=== PATIENT | female | born 1955 | race Caucasian/White ===

== ENCOUNTER → 2016-11-10 15:44 | Outpatient (CLI) | payer OTHER ==
[2016-01-30 02:35] VITALS: BMI 33.1
[~2016-11-10 15:44] MED LIST: ALDACTONE25 MG PO; AMBIEN10 MG PO; ATIVAN0.5 MG PO; BAYER CHEWABLE81 MG PO; BENADRYL25 MG PO; COD LIVER OIL; COREG12.5 MG PO; COREG25 MG PO; FISH OIL 1,0001 CA1 PO; HAWTHORN BERRIES PO; HEMATINIC W/FOL1 TAB PO; IPRAT-ALBUT 0.5-3 ML NEB; ISORDIL5 MG PO; KLOR-CON M2020 MEQ; LASIX20 MG PO; LEVAQUIN500 MG PO; LEVAQUIN750 MG PO; LISINOPRIL2.5 MG GT; MEDROL DOSE PACK4 MG PO; MILK THISTLE PO; MILK THISTLE140 MG PO; MULTIPLE VITAMI1 TA1 PO; NITROSTAT0.4 MG SL; NORCO 10/325 TA1 TA1 PO; PLAVIX75 MG PO; PROTONIX40 MG PO; PROVENTIL/2.5 MG/3 M NEB; STERAPRED DS 1210 MG NG; ULTRAM50 MG PO; [UNRECOGNIZED DRUG - OTHER] PO
== END | disposition home or self-care (01) ==
LOC: D.RAD 15:44
DX: R06.00 Dyspnea, unspecified (principal)

== ENCOUNTER 2016-12-16 14:13 | Emergency (ER) | payer MEDICARE ==
[2016-01-30 02:35] VITALS: BMI 33.1
[2016-12-16 14:51] LABS: BASOPHILS 0.2 % (0-2); EOSINOPHILS 3.5 % (0-7); HEMATOCRIT 45.7 % (36.0-48.0); HEMOGLOBIN 14.9 g/dL (12-16); IMMATURE GRANULOCYTES 0.6 % (0-5); LYMPHOCYTES 12.9 % (15-50); MCH 29.3 pg (26.0-34.0); MCHC 32.6 g/dL (31.0-37.0); MEAN PLATELET VOLUME 10.6 fL (7.4-10.4); MONOCYTES 10.7 % (2-11); NEUTROPHILS 72.1 % (40-80); PLATELET COUNT 154 10x3/uL (130-400); RBC 5.08 10x6/uL (4.00-5.40); WBC 9.8 10x3/uL (4.8-10.8)
[2016-12-16 15:18] LABS: ALBUMIN 3.3 g/dL (3.4-5.0); ALKALINE PHOSPHATASE 52 U/L (46-116); ALT (SGPT) 19 U/L (10-68); CALC OSMOLALITY 289 mosm/kg (275-300); CARBON DIOXIDE 29.6 mmol/L (21.0-32.0); CHLORIDE - SERUM 105 mmol/L (98-107); CREATININE - SERUM 0.7 mg/dL (0.6-1.3); GLUCOSE 110 mg/dL (74-106); POTASSIUM - SERUM 3.8 mmol/L (3.5-5.1); PROTEIN - SERUM 7.2 g/dL (6.4-8.2); SODIUM 144 mmol/L (136-145); TROPONIN-I < 0.017 ng/mL (0.000-0.060); UREA NITROGEN 18 mg/dL (7-18); eGFR NON AFRICAN AMERICAN 90 mL/min (90-120)
[2016-12-16 15:22] LABS: APPEARANCE CLEAR (CLEAR); COLOR YELLOW (YELLOW); GLUCOSE NEGATIVE (NEGATIVE); NITRITE NEGATIVE (NEGATIVE); PROTEIN TRACE mg/dL (NEGATIVE)
[2016-12-16 15:23] LABS: BILIRUBIN NEGATIVE (NEGATIVE); KETONE NEGATIVE (NEGATIVE)
== END 2016-12-16 16:50 | disposition home or self-care (01) ==
LOC: D.ER 14:13
PROVIDERS: Emergency Medicine; Nurse Practitioner Family
DX: J44.1 Chronic obstructive pulmonary disease with (acute) exacerbation (principal); J06.9 Acute upper respiratory infection, unspecified; F41.9 Anxiety disorder, unspecified; F17.200 Nicotine dependence, unspecified, uncomplicated; I49.3 Ventricular premature depolarization

== ENCOUNTER 2019-05-15 09:11 | Outpatient (CLI) | payer MEDICARE ==
[~2019-05-15] VITALS: Ht 167.6 cm; Wt 104.5 kg
--- NOTE | ~2019-05-15 | OP ---
PATIENT NAME: LISETTE SANTIAGO MEDICAL RECORD: [id number] :55 LOCATION:D.CAT ADMISSION DATE: SURGEON: VINICIO MCDANIELS MD DATE OF OPERATION: 05/15/2019 DATE OF SERVICE: 05/15/2019 PROCEDURES: 1. Left heart catheterization. 2. Selective coronary angiography. 3. Left ventriculogram. INDICATION: Angina, coronary artery disease, and cardiomyopathy. PROCEDURE IN DETAIL: After informed consent was obtained and after detailed description of risks, benefits as well as alternative therapies, the patient elected to proceed with angiogram and heart catheterization. The right femoral area was prepped and draped in normal sterile fashion. Right femoral artery was cannulated via modified Seldinger technique with placement of 5-Danish sheath. FINDINGS: Left ventriculogram was performed in standard 30-degree VILLA view, reveals global hypokinesis, ejection fraction 15% to 20%. SELECTIVE CORONARY ANGIOGRAPHY: 1. Left main is with no significant angiographic disease. 2. Left anterior descending has mild irregularities, but no flow-limiting stenosis. 3. The left circumflex has mild irregularities, but no flow-limiting stenosis. 4. Right coronary has mild irregularities, but no flow-limiting stenosis. OVERALL IMPRESSION: Cardiomyopathy, minimal coronary artery disease is present. No flow-limiting stenosis. Center medical management for treatment of the cardiomyopathy. TRANSINT:[id number] Voice Confirmation ID: [id number] DOCUMENT ID: [id number] VINICIO MCDANIELS MD CC: [id number] DICTATION DATE: 06/17/19 1247 DIRECTOR CHEMISTRY: 06/17/19 1719 DEP CLI 05/15/[address] [address]
--- NOTE | ~2019-05-15 | OP ---
PATIENT NAME: LISETTE SANTIAGO MEDICAL RECORD: [id number] :55 LOCATION:D.CAT ADMISSION DATE: SURGEON: VINICIO MCDANIELS MD DATE OF OPERATION: 05/15/2019 ADDENDUM FINAL DIAGNOSIS: Unstable angina. TRANSINT:[id number] Voice Confirmation ID: [id number] DOCUMENT ID: [id number] VINICIO MCDANIELS MD CC: [id number] DICTATION DATE: 06/17/19 1243 GROUND OPERATIONS SUPERVISOR: 06/17/19 1713 DEP CLI 05/15/19 [place] [id number]
--- NOTE | ~2019-05-15 | HEMODYNAMI ---
PATIENT:LISETTE SANTIAGO MEDICAL RECORD: [id number] : 55 LOCATION:DGibsonCAT ADMISSION DATE: 05/15/19 Generatedon:05/15/201912:49 Patient name: LISETTE SANTIAGO Patient #: [id number] : 1955 Date of study: 05/15/2019 Page: Of Hemodynamic Procedure Report Patient Data Patient Demographics Procedure consent was obtained First Name: LISETTE Gender: Female Last Name: PAMELA : 1955 Middle Initial: L Age: 63 year(s) Patient #: [id number] Race: SSN: [id number] Additional ID: [id number] Contact details [address]: [address] [place] [address] State: [place] City: [place] Zip code: [address] Past Medical History History of disease Date Diagnosis Comments CAD Allergies Allergen Reaction Date Comments Reported Other allergy 06/22/2014 Statins, Latex, Metoprolol Other allergy 01/30/2016 Statins, Metoprolol, Latex Other allergy 05/15/2019 STATINS, METOPROLOL Admission Admission Data Admission Date: 05/15/2019 Admission Time: 9:11 Admit Source: Other Lab Results Lab Result Date: 05/15/2019 Lab Result Time: 0:00 Biochemistry Name Units Result Min Max BUN mg/dl 20 --(----)*- 7 18 Creatinine mg/dl 0.9 --(-*--)-- 0.6 1.3 eGFR ml/min 67.34888 *-(----)-- 90 120 NONAFRICAN CBC Name Units Result Min Max Hematocrit % 47.4 --(-*--)-- 42 54 Hemoglobin g/dl 15.7 --(--*-)-- 13.5 17.5 Procedure Procedure Types Cath Procedure Diagnostic Procedure LHC LHC w/Coronaries Sedation Charges Moderate Sedation up to 15 minutes Procedure Description Procedure Date Procedure Date: 05/15/2019 Procedure Start Time: 12:32 Procedure End Time: 12:43 Procedure Staff Name Function Tim Mahajan MD Performing Physician Amie Jordan RT Monitor Liv Dubon RT Scrub Alirio Diamond RN Nurse Procedure Data Cath Procedure Fluoroscopy Diagnostic fluoroscopy Total fluoroscopy Time: 1.4 time: 1.4 min min Diagnostic fluoroscopy Total fluoroscopy dose: 588 dose: 588 mGy mGy Contrast Material Contrast Material Type Amount (ml) Isovue 300 55 Entry Location Entry Primary Successful Side Size Upsize Upsize Entry Closure Succes sful Closure Location (Fr) 1 (Fr) 2 (Fr) Remarks Device Remarks Femoral Right 5 Fr Exoseal artery Estimated blood loss: 5 ml Diagnostic catheters Device Type Used For End Catheter Placement MULTIPACK Pigtail 5 Fr Procedure catheter MULTIPACK JL 4.0 5Fr Procedure catheter MULTIPACK 3DRC 5Fr Procedure catheter Procedure Complications No complications Procedure Medications Medication Administration Route Dosage 0.9% NaCl I.V. 100 ml/hr Oxygen etCO2 Nasal cannula 2 l/min Lidocaine 2% added to field 20 Versed I.V. 2 mg Fentanyl I.V. 100 mcg Versed I.V. 1 mg Versed I.V. 1 mg Benadryl I.V. 50 mg Hemodynamics Rest HGB: 15.7 (g/dl) Heart Rate: 68 (bpm) Snapshots Pre Cath Intra NCS Post Cath Vital Signs Time Heart Resp SPO2 etCO2 NIBP (mmHg) Rhythm Pain Sedation Rate (ipm) (%) (mmHg) Status Level (bpm) 12:09:52 60 23 93 0 146/82(119) Paced 0 (11) 10(A) , No pain 12:14:12 73 20 92 26.3 139/82(109) Paced 0 (11) 10(A) , No pain 12:18:32 60 30 94 27.1 131/77(115) Paced 0 (11) 10(A) , No pain 12:22:50 60 13 95 33.9 124/74(111) Paced 0 (11) 10(A) , No pain 12:27:07 59 18 96 33.1 125/73(96) Paced 0 (11) 10(A) , No pain 12:31:20 60 16 90 36.2 119/68(86) Paced 0 (11) 10(A) , No pain 12:35:30 65 19 95 27.1 113/90(108) Paced 0 (11) 9(A) , No pain 12:39:42 66 16 92 39.2 127/71(103) Paced 0 (11) 9(A) , No pain 12:43:58 65 22 94 23.3 141/79(113) Paced 0 (11) 9(A) , No pain Medications Time Medication Route Dose Verified Delivered Reason Notes Effectiv eness by by 12:14:22 0.9% NaCl I.V. 100 Alirio Alirio Per ml/hr Dara Diamond physician RN RN 12:14:31 Oxygen etCO2 2 Alirio Alirio for low 02 Nasal l/min Lorigan Lorigan sats cannula RN RN 12:14:43 Lidocaine added 20ml Alirio Alirio for local 2% to vial Lorigan Lorigan anesthetic field RN RN 12:15:34 Benadryl I.V. 50 mg Alirio Alirio Per Lorigan Marthaigan physician RN RN 12:28:05 Versed I.V. 2 mg Alirio Alirio for Lorigan Lorigan sedation RN RN 12:28:13 Fentanyl I.V. 100 Alirio Alirio for mcg Lorigan Lorigan sedation RN RN 12:31:33 Versed I.V. 1 mg Alirio Alirio for Lorigan Lorigan sedation RN RN 12:35:00 Versed I.V. 1 mg Alirio Alirio for Lorigan Lorigan sedation RN ironing machine operator Log Time Note 11:47:10 Informed consent obtained and on chart 11:47:57 Procedure Status Elective Heart Cath (OP). 11:47:58 Time tracking: Regular hours (M-F 7:00 - 5:00) 11:48:02 Plan of Care:Hemodynamics will remain stable., Cardiac rhythm will remain stable., Comfort level will be maintained., Respiratory function will remain adequate., Patient/ family verbilizes understanding of procedure., Procedure tolerated without complication., Recovers from procedure without complications.. 11:54:56 Alirio Diamond RN sent for patient. Start room use. 11:57:34 Risk of Mortality: .1 11:57:37 Risk of blood transfusion: .1 11:57:39 Risk of RONY: .1 11:58:49 Stress Test: no; N/A ? 11:58:56 Lab results completed and on chart. 11:59:21 Lab Result : BUN 20 mg/dl 11:59:21 Lab Result : Creatinine 0.9 mg/dl 11:59:21 Lab Result : eGFR NONAFRICAN 67.88885 ml/min 11:59:21 Lab Result : Hemoglobin 15.7 g/dl 11:59:21 Lab Result : Hematocrit 47.4 % 11:59:58 ACC Patient presents with Stable Angina CCS Anginal Class 2--Slight limitation of ordinary activity. 12:00:01 Admit Source: Other 12:00:12 H&P Date Dictated: 05/08/2019 Within 30 days and on chart.. 12:00:13 Pre-procedure instructions explained to patient. 12:00:14 Pre-op teaching completed and patient verbalized understanding. 12:00:15 Family in waiting room. 12:00:17 Patient NPO since Midnight. 12:00:53 Patient allergic to Other allergySTATINS, METOPROLOL 12:00:58 Is the patient allergic to Iodine/contrast media? No. 12:01:00 Was the patient premedicated? N/A 12:01:09 Patient received from Pre/Post Procedure Room to CCL 1 Alert and oriented. Tansferred to table in Supine position. 12:01:10 Warm blankets applied, and rodney hugger turned on for patient comfort. 12:01:11 Warm blankets applied, and rodney hugger turned on for patient comfort. 12:01:12 Correct patient and procedure confirmed by team. 12:01:12 ECG and BP/O2 sat monitors applied to patient. 12:08:40 Vital chart was started 12:08:41 Baseline sample Acquired. 12:08:44 Rhythm: sinus rhythm 12:08:45 Full Disclosure recording started 12:08:51 Is patient on blood thinner?No 12:08:52 Patient diabetic? No. 12:09:05 If diabetic: On Metformin? No 12:09:07 Previous problem with sedation/anesthesia? No ? 12:09:08 Snore? Yes 12:09:10 Sleep apnea? No 12:09:11 Deviated septum? No 12:09:11 Opens mouth fully? Yes 12:09:12 Sticks out tongue? Yes 12:09:15 Airway obstruction? Yes COPD 12:09:18 Dentures? No ? 12:09:27 Pre procedure: right dorsailis pedis pulse 1+ Palpable, but thready & weak; easily obliterated 12:09:35 Patient pain scale 0/10 ?. 12:09:40 IV patent on arrival in left hand with 0.9% NaCl at [facility]. 12:09:44 Right groin area was prepped with chlora-prep and draped in sterile fashion 12:09:45 Alarms reviewed by R. N. 12:09:46 Sharps counted by scrub and verified by R.N. 12:14:22 0.9% NaCl 100 ml/hr I.V. was administered by Alirio Diamond RN; Per physician; Verbal order read back and verified. 12:14:31 Oxygen 2 l/min etCO2 Nasal cannula was administered by Alirio Diamond RN; for low 02 sats; Verbal order read back and verified. 12:14:43 Lidocaine 2% 20ml vial added to field was administered by Alirio Diamond RN; for local anesthetic; Verbal order read back and verified. 12:15:34 Benadryl 50 mg I.V. was administered by Alirio Diamond RN; Per physician; Verbal order read back and verified. 12::56 --------ALL STOP TIME OUT------ 12::56 Final Timeout: patient, procedure, and site verified with staff and physician. All members of the team are in agreement. 12:: Right groin site verified by team. 12:26:03 Fire Safety Assessment: A--An alcohol-based skin anteseptic being used preoperatively., C--Open oxygen or nitrous oxide is being used., D--An ESU, laser, or fiber-optic light is being used. 12:: Physical assessment completed. ASA score P 3 - A patient with severe systemic disease as per Tim Mahajan MD. 12:26:13 2) 60-89 Mildly reduced kidney function, and other findings (as for stage 1) point to kidney disease. 12:26:23 Maximum allowable contrast dose (3.7 X eGFR X 0.75)186 ml. 12::26 Sedation plan: IV Moderate Sedation Medication:Versed, Fentanyl 12:27:10 Zero performed for pressure channel P1 12:28:05 Versed 2 mg I.V. was administered by Alirio Lorigan RN; for sedation; Verbal order read back and verified. 12:28:13 Fentanyl 100 mcg I.V. was administered by Alirio Diamond RN; for sedation; Verbal order read back and verified. 12:31:21 Procedure started. 12:31:33 Versed 1 mg I.V. was administered by Alirio Diamond RN; for sedation; Verbal order read back and verified. 12:32:39 Local anesthetic to right femoral artery with Lidocaine 2% by Tim Mahajan MD.INITIAL ACCESS ONLY 12:34:48 Use device set Femoral Dx 12:34:48 ACIST Syringe (40137) opened to sterile field. 12:34:49 Bag Decanter (2002S) opened to sterile field. 12:34:50 ACIST Hand Control (25791) opened to sterile field. 12:34:50 ACIST Manifold (23419) opened to sterile field. 12:34:51 Tegaderm 4 x 4 (1626W) opened to sterile field. 12:34:52 Medline Cath Pack ([id number]) opened to sterile field. 12:34:53 DIAGNOSTIC Multipack 5Fr catheter set ([id number]) opened to sterile field. 12:34:54 SHEATH 5FR [place] (PHH508) opened to sterile field. 12:34:55 EMERALD Guide Wire (674-817) opened to sterile field. 12:35:00 Versed 1 mg I.V. was administered by Alirio Diamond RN; for sedation; Verbal order read back and verified. 12:35:10 A 5 Fr sheath was inserted into the Right Femoral artery 12:35:27 A MULTIPACK Pigtail 5 Fr catheter was advanced over the wire and used for Procedure. 12:36:01 LV gram done using VILLA 12:36:04 Injector settings: Ml/sec: 10, Volume: 20, 12:36:41 EF : 20 % 12:36:43 Catheter removed. 12:37:01 A MULTIPACK JL 4.0 5Fr catheter was advanced over the wire and used for Procedure. 12:37:51 LCA angiography performed. 12:38:18 Catheter removed. 12:38:23 A MULTIPACK 3DRC 5Fr catheter was advanced over the wire and used for Procedure. 12:39:18 RCA angiography performed. 12:39:20 Catheter removed. 12:39:22 EXOSEAL 5Fr (EX500) opened to sterile field. 12:39:57 Sheath removed intact; hemostasis achieved with Exoseal to the Right Femoral artery. 12:40:00 Procedure ended.(Physican Out) 12:40:54 Fluoroscopy time 01.40 minutes. 12:40:58 Fluoroscopy dose: 588 mGy 12:40:58 Flurop Dose total: 588 12:41:09 Dose Area Product 51016 mGy/cm. 12:41:12 Contrast amount:Isovue 300 55ml. 12:41:14 Maximum allowable dose exceeded? No. 12:41:14 Sharps counted by scrub and verified by R.N. 12:41:18 Post-op/insertion site Right Femoral artery dressed using a 4 x 4 and Tegaderm. 12:41:22 Post-procedure physical assessment completed. ASA score P 3 - A patient with severe systemic disease as per Tim Mahajan MD. 12:41:26 Post procedure rhythm: sinus rhythm 12:41:29 Estimated blood loss: 5 ml 12:41:38 Post procedure instruction explained to patient.Patient verbalizes understanding. 12:41:39 Patient needs reinforcement of post procedure teaching. 12:42:34 Procedure type changed to Cath procedure, Diagnostic procedure, LHC, C w/Coronaries, Sedation Charges, Moderate Sedation up to 15 minutes 12:42:52 Procedure and supply charges have been captured, reviewed, submitted and are correct. 12:42:54 Procedure Complication : No complications 12:43:12 Vital chart was stopped 12:43:16 [facility] Findings: mild to moderate CAD (<70%) 12:43:18 Operative report dictated upon procedure completion. 12:43:18 See physician's report for complete and final results. 12:43:20 Report given to Pre/Post Procedure Room. 12:43:23 Patient transfered to Pre/Post Procedure Room with Bed. 12:43:25 Procedure ended. 12:43:25 Full Disclosure recording stopped 12:43:29 End room use (Document Last) 12:47:42 End room use (Document Last) 12:48:19 End room use (Document Last) Device Usage Item Name Manufacture Quantity Catalog Hospital Part Current Minimal L ot# / Number Charge Number Stock Stock Serial# Code ACIST Acist 1 65491 241334 282965 706549 20 HelloFresh (53577) Systems Inc Bag Microtek 1 268882 50509 063224 5 Decanter Medical Inc. () ACIST Hand Acist 1 32529 619326 561531 215262 5 Control Medical (59039) Systems Inc ACIST Acist 1 47840 962850 111309 452778 5 Manifold Medical (62206) Systems Inc Tegaderm 4 3M 1 1626W 879832 048280 229840 5 x 4 (1626W) Medline Medline 1 [id number] 000566 35556 896332 5 Cath Pack ([id number]) DIAGNOSTIC Cardinal 1 ZQ1734 868418 74830 224326 30 Multipack Health 5Fr catheter set (JP4289) SHEATH 5FR Terumo 1 UEL777 926747 757672 699867 5 [place] (IMS753) EMERALD Cardinal 1 502455 621449 808006 321655 5 Guide Wire Health (502-698) MULTIPACK Cardinal 1 818269 5 Pigtail 5 Health Fr catheter MULTIPACK Cardinal 1 933798 5 JL 4.0 5Fr Health catheter MULTIPACK Cardinal 1 864621 5 3DRC 5Fr Health catheter EXOSEAL 5Fr Cardinal 1 EX500 272467 933716 183890 10 (EX500) Health Signature Audit [place] Stage Time Signature Unsigned Intra-Procedure 05/15/2019 Amie Jordan 12:47:42 PM RT(R) Intra-Procedure 05/15/2019 Alirio 12:48:19 PM Dara HERNÁNDEZ Intra-Procedure 05/15/2019 Tim Mahajan 12:49:01 PM [place] [id number] [place] [address]
[~2019-05-15 09:11] MED LIST changes: +CEFUROXIME500 MG PO; +FLORAJEN3 CAPS460 MG PO; +PREDNISONE10 MG PO
[2019-05-15 10:17] VITALS: BP 129/69; Ht 167.6 cm; Wt 104.5 kg
[2019-05-15 10:44] LABS: BASOPHILS 0.2 % (0-2); EOSINOPHILS 2.8 % (0-7); HEMATOCRIT 47.4 % (36.0-48.0); HEMOGLOBIN 15.7 g/dL (12-16); IMMATURE GRANULOCYTES 0.1 % (0-5); LYMPHOCYTES 13.6 % (15-50); MCH 29.5 pg (26.0-34.0); MCHC 33.1 g/dL (31.0-37.0); MCV 88.9 fL (80.0-100.0); MEAN PLATELET VOLUME 10.7 fL (7.4-10.4); MONOCYTES 7.6 % (2-11); NEUTROPHILS 75.7 % (40-80); RBC 5.33 10x6/uL (4.00-5.40); RDW 13.5 % (11.5-14.5); WBC 8.5 10x3/uL (4.8-10.8)
[2019-05-15 10:56] LABS: PLATELET COUNT 152 10x3/uL (130-400)
[2019-05-15 11:05] LABS: ANION GAP 11.4 mmol/L (8-16); CALCIUM 8.5 mg/dL (8.5-10.1); CARBON DIOXIDE 28.7 mmol/L (21.0-32.0); CHOL - HDL RATIO 2.8 ratio (2.3-4.1); CREATININE - SERUM 0.9 mg/dL (0.6-1.3); LDL-HDL RATIO 1.6 ratio (1.5-3.5); POTASSIUM - SERUM 4.1 mmol/L (3.5-5.1)
--- NOTE | 2019-05-15 12:55 | NUR ---
REC TO ROOM VIA STRETCHER FROM EXTERNAL GRINDER TENDER. MONITORING INITIATED. R GROIN TEGADERM AND 4X4 INTACT. BP 127/68, NSR 64, SAT 94% ON 2LNC. PPP. NO S/S BLEEDING OR HEMATOMA.
--- NOTE | 2019-05-15 13:30 | NUR ---
R GROIN CDI, TENDER TO PALP, SOFT, NO S/S BLEEDING OR HEMATOMA. PPP.
--- NOTE | 2019-05-15 13:55 | NUR ---
CONT C/O LBP. R GROIN TENDER TO PALP, SAME IT HAS BEEN. NO S/S BLEEDING OR HEMATOMA. DR MCDANIELS IN TO SPEAK W PT, ASSESSED GROIN, ALSO REASSESSED BY NORMAN HERNÁNDEZ. NO S/S BLEEDING OR HEMATOMA NOTED. DR MCDANIELS GAVE ORDER FOR NORCO 10. REPOSITIONED W ASSIST OF NORMAN HERNÁNDEZ OFF R HIP.
--- NOTE | 2019-05-15 14:30 | NUR ---
RAISED HOB FOR PT COMFORT. R GROIN TENDER, NO S/S BLEEDING OR HEMATOMA. MORE COMFORTABLE WITH HOB UP.
--- NOTE | 2019-05-15 15:00 | NUR ---
iv dc, TIP INTACT. MONITORING DC. PT FRIEND HAS HER CLOTHING, WILL DRESS WHEN SHE IS HERE FOR PICKUP. R GROIN REMAINS SOFT, NO S/S BLEEDING OR HEMATOMA. DISCHARGE INSTRUCTIONS REVIEWED AND SIGNED.
--- NOTE | 2019-05-15 15:30 | NUR ---
R GROIN SOFT, NO S/S BLEEDING OR HEMATOMA. NO FURTHER C/O PAIN AFTER NORCO AND REPOSITIONING. CONT TO AWAIT RIDE.
--- NOTE | 2019-05-15 16:00 | NUR ---
PT ASSISTED TO DRESS. D/C HOME VIA WHEELCHAIR TO PRIVATE CAR W CAREGIVER AND GRANDSON. PT HAS ALL BELONGINGS.
== END 2019-05-15 16:00 | disposition home or self-care (01) ==
LOC: D.CATH 09:11
PROVIDERS: ATTEND Internal Medicine Interventional Cardiology
DX: I25.110 Atherosclerotic heart disease of native coronary artery with unstable angina pectoris (principal); I42.9 Cardiomyopathy, unspecified; E78.5 Hyperlipidemia, unspecified; I10 Essential (primary) hypertension; Z72.0 Tobacco use; R06.09 Other forms of dyspnea; Z95.810 Presence of automatic (implantable) cardiac defibrillator

== ENCOUNTER 2019-08-31 08:07 | Inpatient (IN) | payer MEDICARE ==
[2019-08-31] VITALS (7 sets, daily range): BP systolic 112–146; BP diastolic 61–91; BMI 38.9
[~2019-08-31] VITALS: Ht 167.6 cm; Wt 108.0 kg
--- NOTE | 2019-08-31 08:23 | NUR ---
PT REPORTS THAT SHE TOOK 325 MG ASA AND 2 NTG TABS THIS AM WITH NO RELIEF
[2019-08-31 08:40] LABS: BASOPHILS 0.3 % (0-2); EOSINOPHILS 1.5 % (0-7); HEMATOCRIT 48.4 % (36.0-48.0); HEMOGLOBIN 15.5 g/dL (12-16); IMMATURE GRANULOCYTES 0.2 % (0-5); LYMPHOCYTES 8.4 % (15-50); MCH 28.8 pg (26.0-34.0); MCV 89.8 fL (80.0-100.0); MEAN PLATELET VOLUME 10.9 fL (7.4-10.4); MONOCYTES 6.2 % (2-11); NEUTROPHILS 83.4 % (40-80); PLATELET COUNT 167 10x3/uL (130-400); RBC 5.39 10x6/uL (4.00-5.40); RDW 13.4 % (11.5-14.5)
[2019-08-31 08:48] LABS: CALC OSMOLALITY 284 mosm/kg (275-300); CALCIUM 9.2 mg/dL (8.5-10.1); CARBON DIOXIDE 32.4 mmol/L (21.0-32.0); CHLORIDE - SERUM 104 mmol/L (98-107); CREATININE - SERUM 0.9 mg/dL (0.6-1.3); GLUCOSE 152 mg/dL (74-106); POTASSIUM - SERUM 4.4 mmol/L (3.5-5.1); SODIUM 140 mmol/L (136-145); UREA NITROGEN 20 mg/dL (7-18); eGFR NON AFRICAN AMERICAN 67 mL/min (90-120)
[2019-08-31 08:50] LABS: APTT 26.4 SECONDS (22.8-39.4); INR 0.98 (0.85-1.17); PROTIME 12.9 SECONDS (11.6-15.0)
[2019-08-31 09:04] LABS: ALBUMIN 3.7 g/dL (3.4-5.0); ALKALINE PHOSPHATASE 54 U/L (30-120); ALT (SGPT) 36 U/L (10-68); BILIRUBIN - TOTAL 0.69 mg/dL (0.2-1.3); CREATINE KINASE 88 UL (21-215); MAGNESIUM - SERUM 2.1 mg/dL (1.8-2.4); PROTEIN - SERUM 7.4 g/dL (6.4-8.2); TROPONIN-I < 0.017 ng/mL (0.000-0.060)
--- NOTE | 2019-08-31 10:15 | NUR ---
PT DAUGHTER [facility] [phone]
--- NOTE | 2019-08-31 10:15 | NUR ---
PT UPDATED ON POC. IN FULL AGREEMENT WITH PLAN. CONTINUES PAIN FREE AT THIS TIME. VSS. WILL CONTINUE TO MONITOR.
[2019-08-31 17:41] LABS: BILIRUBIN NEGATIVE (NEGATIVE); GLUCOSE NEGATIVE (NEGATIVE); KETONE MODERATE mg/dL (NEGATIVE); NITRITE NEGATIVE (NEGATIVE); SPECIFIC GRAVITY 1.025 (1.005-1.020); UROBILINOGEN NORMAL (NORMAL)
[2019-08-31 17:46] LABS: BACTERIA FEW /hpf (NEGATIVE); EPITHELIAL CELLS 0-5 /hpf (0-5); RED CELLS - URINE 0-5 /hpf (0-5); WHITE CELLS - URINE 0-5 /hpf (NEGATIVE)
[2019-08-31 17:51] LABS: UDS - AMPHET NEGATIVE QUAL (NEGATIVE); UDS - BARB NEGATIVE QUAL (NEGATIVE); UDS - BENZO NEGATIVE QUAL (NEGATIVE); UDS - COCAINE NEGATIVE QUAL (NEGATIVE); UDS - OPIATE NEGATIVE QUAL (NEGATIVE); UDS - PCP NEGATIVE QUAL (NEGATIVE); UDS - THC POSITIVE QUAL (NEGATIVE)
[2019-09-01] VITALS: BP 100/62
[2019-09-01 04:00] VITALS: BP 99/46
[2019-09-01 05:11] LABS: BASOPHILS 0 % (0-2); EOSINOPHILS 0 % (0-7); HEMATOCRIT 47.3 % (36.0-48.0); HEMOGLOBIN 15.1 g/dL (12-16); IMMATURE GRANULOCYTES 0.2 % (0-5); LYMPHOCYTES 2.5 % (15-50); MCHC 31.9 g/dL (31.0-37.0); MCV 90.8 fL (80.0-100.0); MEAN PLATELET VOLUME 10.9 fL (7.4-10.4); MONOCYTES 2.7 % (2-11); NEUTROPHILS 94.6 % (40-80); RBC 5.21 10x6/uL (4.00-5.40); RDW 13.5 % (11.5-14.5)
[2019-09-01 05:27] LABS: PLATELET COUNT 112 10x3/uL (130-400); WBC 17.4 10x3/uL (4.8-10.8)
[2019-09-01 05:48] LABS: CALCIUM 7.9 mg/dL (8.5-10.1); CARBON DIOXIDE 28.9 mmol/L (21.0-32.0); MAGNESIUM - SERUM 1.8 mg/dL (1.8-2.4); PHOSPHOROUS 4.5 mg/dL (2.5-4.9); POTASSIUM - SERUM 3.9 mmol/L (3.5-5.1)
[2019-09-01 05:53] LABS: CREATININE - SERUM 1.2 mg/dL (0.6-1.3)
[2019-09-01 10:36] VITALS: BP 116/54
[2019-09-01 13:36] VITALS: Ht 167.6 cm; Wt 108.0 kg
[2019-09-01 15:48] VITALS: BP 102/66
--- NOTE | 2019-09-01 20:00 | NUR ---
REPORT RECIEVED AND INITIAL ROUNDS COMPLETED. CALL LIGHT IN REACH.
[2019-09-01 20:30] VITALS: BP 115/63
--- NOTE | 2019-09-01 22:11 | NUR ---
ORAL MEDICATIONS GIVEN. PT READING. NO DISTRESS.
[2019-09-02 00:26] VITALS: BP 101/456
[2019-09-02 04:30] VITALS: BP 102/59
[2019-09-02 05:32] LABS: BASOPHILS 0 % (0-2); EOSINOPHILS 0.9 % (0-7); HEMATOCRIT 44.8 % (36.0-48.0); HEMOGLOBIN 14.2 g/dL (12-16); IMMATURE GRANULOCYTES 0.6 % (0-5); LYMPHOCYTES 2.8 % (15-50); MCHC 31.7 g/dL (31.0-37.0); MCV 91.6 fL (80.0-100.0); MEAN PLATELET VOLUME 11.1 fL (7.4-10.4); MONOCYTES 3.5 % (2-11); NEUTROPHILS 92.2 % (40-80); PLATELET COUNT 129 10x3/uL (130-400); RBC 4.89 10x6/uL (4.00-5.40); RDW 13.7 % (11.5-14.5); WBC 15.6 10x3/uL (4.8-10.8)
[2019-09-02 06:02] LABS: CALCIUM 7.7 mg/dL (8.5-10.1)
--- NOTE | 2019-09-02 07:20 | EC ---
PATIENT:LISETTE SANTIAGO DATE OF SERVICE: 08/31/19 SEX: F MEDICAL RECORD: [id number] DATE OF : [birth year] LOCATION:D.M2 D.211 AGE OF PATIENT: 63 ADMISSION DATE: 09/01/19 REFERRING PHYSICIAN: INTERPRETING PHYSICIAN: JEFFERY CALDERON MD ECHOCARDIOGRAM REPORT ECHO CHARGES 4 ECHO COMPLETE Date: 08/31/19 CLINICAL DIAGNOSIS: CHF HX CAD/STENTS/HTN ECHOCARDIOGRAPHIC MEASUREMENTS (adult normal given) AC root (d.<3.7cm) 3.5 cm LV Septum d (<1.2 cm> 1.5 cm Valve Excursion 1.6 cm LV Septum (systole) 1.6 cm Left Atria (s.<4.0cm> 3.9 cm LVPW d(<1.2cm) 1.5 cm RV (d.<2.3cm) 3.7 cm LVPW (sytole) 1.8 cm LV diastole(<5.6CM) 4.8 cm MV E-F(>70mm/sec) cm LV systole 3.4 cm LVOT Diameter 1.5 cm MV exc.(>10mm) 1.6 cm Est.ejection fraction (50-75%) % DOPPLER: LVIT cm/sec A 86.0 cm/sec E 52.0 cm/sec LA cm/sec RVSP 16 mmHg LVOT 84 cm/sec AOP1/2T m/s Asc. Ao 114 cm/sec RVOT 70 cm/sec RA cm/sec PA 103 cm/sec AV Gradient Peak 5.17 mmHg AV Mean 3.09 mmHg AV Area 1.3 cm MV Gradient Peak 3.55 mmHg MV Mean 1.07 mmHg MV Area cm COMMENTS: Co Founder & Ceo: 2 MARILY TELLEZ Broadcast Journalist: 4 Dr. Calderon TAPE# PACS Pericardial Effusion N DATE OF SERVICE: FINDINGS: Technically difficult study of the left ventricle shows evidence of left ventricular hypertrophy. There is evidence of possible inferior hypokinesis and regional wall motion abnormalities consistent with prior possible infarction. Overall, ejection fraction 45% to 50%. Left atrium is normal size; shape, structure, and function. Aortic valve is sclerotic. No evidence of significant stenosis. ECHOCARDIOGRAM REPORT [id number] LISETTE SANTIAGO Mitral valve is normal overall, but not well visualized. Tricuspid valve is normal overall, but not well visualized. Pericardium is normal. Right ventricle has mild enlargement with mild right ventricular hypertrophy. Right atrium is normal. Pulmonic valve appears to be normal. IMPRESSION: Overall, there may be mild ischemic cardiomyopathy, very tenuous numbers because of difficulty seeing endocardium. Other testing may be helpful depending on clinical situation. TRANSINT:[id number] Voice Confirmation ID: [id number] DOCUMENT ID: [id number] JEFFERY CALDERON MD at 0720 CC: [id number] DICTATION DATE: 09/01/19 1032 DRAINLAYER: 09/01/19 1153 ADM IN [facility] [address] [place] [id number]
[2019-09-02 10:06] VITALS: BP 114/71
[2019-09-02] MEDS ORDERED: SINGULAIR10 MG PO (12:07)
[2019-09-02] MEDS ORDERED: LASIX40 MG PO (12:08)
[2019-09-02] MEDS ORDERED: AZITHROMYCIN500 MG PO (12:09)
[2019-09-02] MEDS ORDERED: POTASSIUM CHLO20 MEQ PO (12:09)
[2019-09-02] MEDS ORDERED: PREDNISONE10 MG PO (12:10)
[2019-09-02 13:12] VITALS: BP 116/65
--- NOTE | 2019-09-02 16:32 | NUR ---
REVIEWED DISCHARGE INSTRUCTIONS WITH PT STATES UNDERSTANDING COPY GIVEN DCD SALINE LOCK TO RT HAND WITH IV CATHETER INTACT SITE FREE OF REDNESS OR EDEMA PT DISCHARGED HOME IN STABLE CONDITION WITH ALL P[ERSONAL BELONGINGS PT LEFT UNIT VIA W/C
== END 2019-09-02 16:32 | disposition home or self-care (01) | DRG 292 ==
LOC: D.ER 08:07 → D.M2 13:49 → OBSVTIME 13:49 → D.M2 13:49
PROVIDERS: Family Medicine; ADMIT Family Medicine; ATTEND Family Medicine
DX: I11.0 Hypertensive heart disease with heart failure (principal); J44.1 Chronic obstructive pulmonary disease with (acute) exacerbation; F17.203 Nicotine dependence unspecified, with withdrawal; I50.23 Acute on chronic systolic (congestive) heart failure; I25.110 Atherosclerotic heart disease of native coronary artery with unstable angina pectoris; I42.9 Cardiomyopathy, unspecified; R91.1 Solitary pulmonary nodule; G89.29 Other chronic pain; M54.9 Dorsalgia, unspecified; Z86.73 Personal history of transient ischemic attack (TIA), and cerebral infarction without residual deficits; Z95.0 Presence of cardiac pacemaker

== ENCOUNTER 2019-12-09 11:47 | Inpatient (IN) | payer MEDICARE ==
[~2019-12-09] VITALS: Ht 167.6 cm; Wt 96.8 kg
[~2019-12-09 11:47] MED LIST changes: +AZITHROMYCIN500 MG PO; +LASIX40 MG PO; +POTASSIUM CHLO20 MEQ PO; +SINGULAIR10 MG PO
[2019-12-09 13:25] LABS: BASOPHILS 0.1 % (0-2); EOSINOPHILS 0.1 % (0-7); HEMOGLOBIN 17.7 g/dL (12-16); IMMATURE GRANULOCYTES 0.2 % (0-5); LYMPHOCYTES 8.1 % (15-50); MCH 29.7 pg (26.0-34.0); MCHC 32.8 g/dL (31.0-37.0); MCV 90.6 fL (80.0-100.0); MONOCYTES 8.1 % (2-11); NEUTROPHILS 83.4 % (40-80); PLATELET COUNT 116 10x3/uL (130-400); RBC 5.96 10x6/uL (4.00-5.40); RDW 13.6 % (11.5-14.5); WBC 14.4 10x3/uL (4.8-10.8)
[2019-12-09 13:56] LABS: CALC OSMOLALITY 278 mosm/kg (275-300); CARBON DIOXIDE 32.7 mmol/L (21.0-32.0); CHLORIDE - SERUM 101 mmol/L (98-107); CREATININE - SERUM 0.8 mg/dL (0.6-1.3); POTASSIUM - SERUM 4.1 mmol/L (3.5-5.1); SODIUM 138 mmol/L (136-145); UREA NITROGEN 17 mg/dL (7-18); eGFR NON AFRICAN AMERICAN 76 mL/min (90-120)
[2019-12-09 13:57] LABS: GLUCOSE 113 mg/dL (74-106)
[2019-12-09 14:07] LABS: ALKALINE PHOSPHATASE 55 U/L (30-120); ALT (SGPT) 36 U/L (10-68); AMYLASE - SERUM 59 U/L (25-115); BILIRUBIN - TOTAL 1.02 mg/dL (0.2-1.3); LIPASE 125 U/L (73-393); PROTEIN - SERUM 7.1 g/dL (6.4-8.2)
[2019-12-09 14:10] LABS: TROPONIN-I < 0.017 ng/mL (0.000-0.060)
--- NOTE | 2019-12-09 14:45 | NUR ---
iv resited at ct.
--- NOTE | 2019-12-09 15:24 | NUR ---
urine spec collected, labeled at bs and sent to lab
[2019-12-09 15:34] LABS: BILIRUBIN NEGATIVE (NEGATIVE); KETONE MODERATE mg/dL (NEGATIVE); NITRITE NEGATIVE (NEGATIVE); UROBILINOGEN NORMAL mg/dL (< 2)
--- NOTE | 2019-12-09 16:27 | NUR ---
PATIENT HAS PACEMAKER AND DEFIBRILLATOR. NOTIFIED DR SANTORO THAT MRI CAN NOT BE PERFORMED. CANCELLED MRI ABDOMEN.
--- NOTE | 2019-12-09 16:27 | NUR ---
NPO AFTER MIDNIGHT FOR ULTRASOUND ABDOMEN. WILL DO IN AM. NURSE GUI NOTIFIED
[2019-12-09 17:04] LABS: INR 1.04 (0.85-1.17); PROTIME 13.5 SECONDS (11.6-15.0)
[2019-12-09 17:08] VITALS: BP 118/59
--- NOTE | 2019-12-09 17:25 | NUR ---
CALLED REPORT TO AMRITA AT THIS TIME
--- NOTE | 2019-12-09 18:00 | NUR ---
arrives to unit per stretcher, alert and o, denies pain or nausea at present, o2 per nc at 3l, npo for us, ns infusing per l hand, cont to monitor
[2019-12-09 18:08] VITALS: BP 130/70
--- NOTE | 2019-12-09 18:38 | NUR ---
covid screen collected by er nurse, states that she has taken it herself to the lab, pt confirms that she was swabbed
[2019-12-09 19:07] LABS: UDS - AMPHET NEGATIVE QUAL (NEGATIVE); UDS - BARB NEGATIVE QUAL (NEGATIVE); UDS - BENZO NEGATIVE QUAL (NEGATIVE); UDS - COCAINE NEGATIVE QUAL (NEGATIVE); UDS - OPIATE POSITIVE QUAL (NEGATIVE); UDS - PCP NEGATIVE QUAL (NEGATIVE); UDS - THC POSITIVE QUAL (NEGATIVE)
--- NOTE | 2019-12-09 19:17 | NUR ---
RESPONDED TO PATIENT CALL LIGHT AND ASSISTED PATIENT WITH IV. SITE SUPERVISING TECHNICAL OPERATOR AT BEDSIDE ASSISTED PATIENT TO AND FROM RESTROOM. PATIENT HAS STEADY GAIT. DENIES OTHER NEEDS. WILL CONTINUE TO MONITOR. ENCOURAGED TO CALL IF SHE HAS NEEDS.
--- NOTE | 2019-12-09 20:30 | NUR ---
ADMINISTERED MEDS PER ORDERS. PATIENT DENIES OTHER NEEDS. WILL CONTINUE TO MONITOR.
[2019-12-09 21:35] VITALS: BP 152/47
[2019-12-10] VITALS: BP 113/53
[2019-12-10] MEDS ORDERED: IPRAT-ALBUT 0.5-3 ML UPD (00:24)
--- NOTE | 2019-12-10 00:26 | NUR ---
PAGENakul TAVARES, TOP CARRIER, IN REGARDS TO PATIENT'S C/O OF SHORTNESS OF BREATH
[2019-12-10 04:00] VITALS: BP 144/60
[2019-12-10 06:00] LABS: BASOPHILS 0 % (0-2); EOSINOPHILS 0 % (0-7); HEMATOCRIT 47.1 % (36.0-48.0); HEMOGLOBIN 15.2 g/dL (12-16); IMMATURE GRANULOCYTES 0.2 % (0-5); LYMPHOCYTES 3.2 % (15-50); MCHC 32.3 g/dL (31.0-37.0); MCV 89.7 fL (80.0-100.0); MEAN PLATELET VOLUME 11.2 fL (7.4-10.4); MONOCYTES 3.9 % (2-11); NEUTROPHILS 92.7 % (40-80); PLATELET COUNT 134 10x3/uL (130-400); RBC 5.25 10x6/uL (4.00-5.40); RDW 13.6 % (11.5-14.5); WBC 14.5 10x3/uL (4.8-10.8)
[2019-12-10 06:30] LABS: ALBUMIN 3.3 g/dL (3.4-5.0); ANION GAP 11.1 mmol/L (8-16); BILIRUBIN - TOTAL 0.81 mg/dL (0.2-1.3); CALCIUM 8.5 mg/dL (8.5-10.1); CARBON DIOXIDE 28.5 mmol/L (21.0-32.0); CREATININE - SERUM 0.9 mg/dL (0.6-1.3); POTASSIUM - SERUM 3.6 mmol/L (3.5-5.1); PROTEIN - SERUM 6.8 g/dL (6.4-8.2)
--- NOTE | 2019-12-10 07:38 | NUR ---
LYING IN BED W/EYES CLOSED, NO DISTRESS NOTED.
[2019-12-10 08:00] VITALS: BP 139/69
[2019-12-10 11:51] VITALS: BP 152/73
--- NOTE | 2019-12-10 12:43 | NUR ---
1008-PT SITTING UP IN BED CRYING, C/O PAIN IN EPIGASTRIC AREA, MORPHINE AND ZOFRAN ADMINISTERED/ORDER, REASSURED PT.
--- NOTE | 2019-12-10 12:44 | NUR ---
1150-PT CONTINUES TO SIT UP IN BED AND CRY C/O PAIN IN EPI GASTRIC REGION-TYLENOL GIVEN AT THIS TIME WILL CONTINUE TO MONITOR.
--- NOTE | 2019-12-10 14:49 | NUR ---
DC'D IV FROM LEFT FINGER AND FROM LEFT HAND--BOTH IV CATHS INTACT--BANDAGES APPLIED. NEW IV STARTED --20GA X'S 2 STICKS TO RIGHT HAND PT TOLERATED WELL, MORPHINE AND ZOFRAN ADMINISTERED FOR PAIN SEE FINESSE NEVAREZ IN ROOM AT BEDSIDE, PT DENIES ANY FURTHER NEEDS AT THIS TIME.
[2019-12-10 16:22] VITALS: BP 129/63
--- NOTE | 2019-12-10 19:15 | NUR ---
PATIENT RESTING IN BED WITH NO S/S OF DISTRESS AND DENIES NEEDS AT THIS TIME. BED IN LOWEST POSITION AND CALL LIGHT WITHIN REACH. ENCOURAGED THE PATIENT TO CALL IF SHE HAS NEEDS. WILL CONTINUE TO MONITOR.
--- NOTE | 2019-12-10 19:20 | NUR ---
ASSISTED PATIENT BACK FROM RESTROOM. PATIENT DENIES OTHER NEEDS AT THIS TIME. TURNED ARTURO ALARM ON. ENCOURAGED THE PATIENT TO CALL. WILL CONTINUE TO MONITOR.
[2019-12-10 20:00] VITALS: BP 138/68
--- NOTE | 2019-12-10 20:00 | NUR ---
COMPLETED CHG BATH AND CHANGED PATIENT'S LINENS.
--- NOTE | 2019-12-10 20:40 | NUR ---
ADMINISTERED MEDS PER ORDERS. PATIENT DENIES OTHER NEEDS. WILL CONTINUE TO MONITOR.
--- NOTE | 2019-12-10 21:02 | NUR ---
ADMINISTERED MEDS PER ORDERS. PATIENT DENIES OTHER NEEDS. WILL CONTINUE TO MONITOR.
--- NOTE | 2019-12-10 22:09 | NUR ---
GABBIE TAVARES, EXPLOSIVES MIXER OPERATOR, IN REGARDS TO PATIENT'S REQUEST FOR AMBIEN
[2019-12-11 04:00] VITALS: BP 127/61
[2019-12-11 05:53] LABS: BASOPHILS 0.1 % (0-2); EOSINOPHILS 0.3 % (0-7); HEMATOCRIT 47.2 % (36.0-48.0); HEMOGLOBIN 14.9 g/dL (12-16); IMMATURE GRANULOCYTES 0.2 % (0-5); LYMPHOCYTES 9.1 % (15-50); MCH 29.2 pg (26.0-34.0); MCHC 31.6 g/dL (31.0-37.0); MEAN PLATELET VOLUME 11.2 fL (7.4-10.4); MONOCYTES 9.5 % (2-11); NEUTROPHILS 80.8 % (40-80); PLATELET COUNT 151 10x3/uL (130-400); RBC 5.11 10x6/uL (4.00-5.40); RDW 14.1 % (11.5-14.5); WBC 12.4 10x3/uL (4.8-10.8)
[2019-12-11 06:05] LABS: MCV 92.4 fL (80.0-100.0)
[2019-12-11 06:30] LABS: ALBUMIN 3.4 g/dL (3.4-5.0); ANION GAP 8.8 mmol/L (8-16); BILIRUBIN - TOTAL 0.82 mg/dL (0.2-1.3); CALCIUM 7.9 mg/dL (8.5-10.1); CARBON DIOXIDE 30.8 mmol/L (21.0-32.0); POTASSIUM - SERUM 3.6 mmol/L (3.5-5.1); PROTEIN - SERUM 6.9 g/dL (6.4-8.2)
--- NOTE | 2019-12-11 07:00 | NUR ---
A&O RESTING IN BED WITH EYES OPEN. NO C/O PAIN. NO S/S OF ACUTE DISTRESS NOTED. SCHEDULED FOR LAP LOULOU TODAY. SCDS ON. ON 3L O2, NC. IV TO RIGHT HAND, NS INFUSING @ 75ML/HR. SITE PATENT WITHOUT REDNESS OR SWELLING. DENIES ANY NEEDS AT THIS TIME. CALL LIGHT IN REACH. WILL CONTINUE TO MONITOR.
--- NOTE | 2019-12-11 07:35 | NUR ---
PATIENT TAKEN TO SURGERY VIA STRETCHER ACCOMPANIED BY HOSPITAL STAFF
[2019-12-11 11:29] VITALS: BP 129/64
--- NOTE | 2019-12-11 11:34 | NUR ---
RECEIVED PATIENT FROM RECOVERY. A&O, SLIGHTLY DROWSY. C/O SEVERE PAIN TO ABDOMEN, GAVE TYLENOL #3 FOR PAIN 12/15. LAP SITES TO ABDOMEN, C/D/I. NO S/S OF ACUTE DISTRESS NOTED. ON 3L O2, NC. DENIES ANY NEEDS AT THIS TIME. CALL LIGHT IN REACH. WILL CONTINUE TO MONITOR.
[2019-12-11 14:26] VITALS: Ht 167.6 cm; Wt 96.8 kg
[2019-12-11 15:00] VITALS: BP 142/78
--- NOTE | 2019-12-11 19:36 | NUR ---
I have reviewed this patient and I concur with the Shift Assessment completed by the Licensed Practical Nurse today this shift.
[2019-12-11 20:00] VITALS: BP 110/50
--- NOTE | 2019-12-11 20:20 | NUR ---
ACEWRAP DRY AND INTACT RIGHT BKA ELEVATED ON PILLOW.DENIES PAIN C/O MUSCLE SPASMS.WOUND VAC IN PLACE.WILL CONTINUE TO MONITOR FOR ANY CHGES IN NEUROVASCULAR STATUS AND FOLLOW CURRENT PLAN OF CARE.
[2019-12-12] VITALS: BP 110/63
[2019-12-12 04:00] VITALS: BP 125/81
[2019-12-12 07:00] VITALS: BP 127/64
[2019-12-12 07:57] LABS: BASOPHILS 0.2 % (0-2); EOSINOPHILS 0.5 % (0-7); HEMATOCRIT 47.2 % (36.0-48.0); IMMATURE GRANULOCYTES 0.2 % (0-5); LYMPHOCYTES 6.7 % (15-50); MCH 29.4 pg (26.0-34.0); MCHC 31.8 g/dL (31.0-37.0); MCV 92.5 fL (80.0-100.0); MEAN PLATELET VOLUME 10.9 fL (7.4-10.4); MONOCYTES 7.2 % (2-11); NEUTROPHILS 85.2 % (40-80); PLATELET COUNT 123 10x3/uL (130-400); RDW 14.2 % (11.5-14.5); WBC 13.1 10x3/uL (4.8-10.8)
--- NOTE | 2019-12-12 08:11 | NUR ---
PT CRYING AND C/O PAIN A 12/15. GAVE MORPHINE 2MG PRN AND PAGED ANUSHA. PT STATES THE MORPHINE DOESNT HELP MORE THAN 30MIN AND HER PAIN IN UNBEARABLE. WAITING FOR CALL BACK. CONTINUING TO MONITOR
[2019-12-12 08:27] LABS: ALBUMIN 3.1 g/dL (3.4-5.0); ANION GAP 8.5 mmol/L (8-16); BILIRUBIN - TOTAL 1.47 mg/dL (0.2-1.3); CALCIUM 7.5 mg/dL (8.5-10.1); CARBON DIOXIDE 33.2 mmol/L (21.0-32.0); CREATININE - SERUM 0.9 mg/dL (0.6-1.3); POTASSIUM - SERUM 3.7 mmol/L (3.5-5.1); PROTEIN - SERUM 6.1 g/dL (6.4-8.2)
[2019-12-12 11:00] VITALS: BP 148/78
[2019-12-12 20:00] VITALS: BP 98/52
[2019-12-13] VITALS: BP 221/107
--- NOTE | 2019-12-13 02:21 | NUR ---
I have reviewed this patient and I concur with the Shift Assessment completed by the Licensed Practical Nurse today this shift.
[2019-12-13 04:00] VITALS: BP 111/53
[2019-12-13 06:48] LABS: BASOPHILS 0.1 % (0-2); EOSINOPHILS 2.8 % (0-7); HEMATOCRIT 41.5 % (36.0-48.0); HEMOGLOBIN 12.6 g/dL (12-16); IMMATURE GRANULOCYTES 0.2 % (0-5); MCH 28.3 pg (26.0-34.0); MCHC 30.4 g/dL (31.0-37.0); MCV 93.3 fL (80.0-100.0); MEAN PLATELET VOLUME 11.3 fL (7.4-10.4); MONOCYTES 6.9 % (2-11); PLATELET COUNT 122 10x3/uL (130-400); RBC 4.45 10x6/uL (4.00-5.40); RDW 14.1 % (11.5-14.5); WBC 11.5 10x3/uL (4.8-10.8)
[2019-12-13 07:12] LABS: ALBUMIN 2.5 g/dL (3.4-5.0); ANION GAP 8.1 mmol/L (8-16); BILIRUBIN - TOTAL 0.84 mg/dL (0.2-1.3); CALCIUM 7.4 mg/dL (8.5-10.1); CARBON DIOXIDE 31.4 mmol/L (21.0-32.0); CREATININE - SERUM 0.9 mg/dL (0.6-1.3); POTASSIUM - SERUM 3.5 mmol/L (3.5-5.1)
--- NOTE | 2019-12-13 07:15 | NUR ---
RECEIVED BEDSIDE REPORT. PT SITTING UP IN BED, A&O X4, MOANING IN PAIN. EDUCATED PT THAT I WOULD RETURN WITH PAIN MEDS, VERBALIZED UNDERSTANDING. PIV TO RIGHT FOREARM, PATENT AND INFUSING, NO REDNESS OR SWELLING. ABD DISTENDED, 4 LAP SITES, OPEN TO AIR, NO DRAINAGE. PT REPORTS HAVING PACEMAKER AND DEFIB. ABLE TO AMBULATE WITH MIN ASSIST. BED LOW, RAILS X2. CL IN REACH. WILL CONTINUE TO MONITOR.
[2019-12-13 08:54] VITALS: BP 116/88
--- NOTE | 2019-12-13 09:15 | NUR ---
PT C/O PAIN 11/15. PROVIDED PAIN MEDS PER ORDER, PT TOLERATED WELL. CRISTINO CONTINUE TO MONITOR.
--- NOTE | 2019-12-13 11:15 | NUR ---
PT C/O PAIN 10/15, PROVIDED PAIN MEDS PER ORDER. PT TOLERATED WELL. WILL CONTINUE TO MONITOR.
--- NOTE | 2019-12-13 11:39 | MORECARE ---
CASE MANAGEMENT DISCHARGE SUMMARY PATIENT: LISETTE SANTIAGO UNIT: [id number] ADM DATE: 12/09/19 AGE: 64 : 55 SEX: F ROOM/BED: D.[facility]7 AUTHOR: RYAN JIN PHYSICIAN: REFERRING PHYSICIAN: ARNULFO SANTORO MD DATE OF SERVICE: 12/13/19 Discharge Plan Patient Name: LISETTE SANTIAGO [facility] [facility] 1955 Planned Disposition: Home Anticipated Discharge Date: Discharge Date: Expected LOS: Initial Reviewer: [email or web address] Initial Review Date: 12/09/2019 Generated: 12/13/19 12:38 pm DCPIA - Discharge Planning Initial Assessment Updated by [email or web address]: Wendy Colbert on 12/13/19 11:37 am * Is the patient Alert and Oriented? Yes * PCP RAY * Pharmacy [facility] * Preadmission Environment Home with Family * ADLs Independent * Other Equipment 02, NEBS WITH [facility] * Community resources currently utilized None * Additional services required to return to the preadmission environment? No * Can the patient safely return to the preadmission environment? Yes * Has this patient been hospitalized within the prior 30 days at any hospital? No Patient Name: LISETTE SANTIAGO Page [id number] at 1139 All edits/amendments must be made on the electronic document DICTATION DATE: 12/13/19 113 PROJECT DESIGNER: TREY 12/13/19 1139 RPT#: [id number] DC DATE: STATUS: ADM IN [facility] [address] [place] [address] END OF REPORT
--- NOTE | 2019-12-13 11:47 | MORECARE ---
CASE MANAGEMENT DISCHARGE SUMMARY PATIENT: LISETTE SANTIAGO UNIT: [id number] ADM DATE: 12/09/19 AGE: 64 : 55 SEX: F ROOM/BED: D.2237 AUTHOR: DAVIN,DOC PHYSICIAN: REFERRING PHYSICIAN: ARNULFO SANTORO MD DATE OF SERVICE: 12/13/19 Discharge Plan Patient Name: LISETTE SANTIAGO Facility: [facility]:[place] : 1955 Planned Disposition: Home Anticipated Discharge Date: Discharge Date: Expected LOS: Initial Reviewer: [email or web address] Initial Review Date: 12/09/2019 Generated: 12/13/19 12:47 pm Comments DCP- Discharge Planning Updated by [email or web address]: Wendy Colbert on 12/13/19 10:[address] Patient Name: LISETTE SANTIAGO Admission Status: ER Accout number: [id number] Admission Date: 12-09-2019 : 1955 Admission Diagnosis:UNSPECIFIED ABDOMINAL PAIN Attending: ARNULFO SANTORO Current LOS: 4 Anticipated DC Date: Planned Disposition: Home Primary Insurance: [employer] CHOICE PPO MCR ADVANT Discharge Planning Comments: CM met with patient at bedside after explaining CM role and obtaining verbal consent. CM discussed availability / needs of home health, REHAB and medical equipment. PATIENT DENIES ANY DISCHARGE NEEDS. HAS 02 AND NEBS AT HOME. WANTS TO DC TO HOME TODAY. IMM SIGNED. STATES SHE DOES NOT WANT HOME HEALTH. SHE HAS A CAREGIVER THAT COMES AND HELPS HER WITH HER SON, SAID SHE HELPS HER ALSO IF NEEDED. CM TO FOLLOW AND ASSIST NEEDED. Drawing Kiln Operator: Wendy Colbert DCPIA - Discharge Planning Initial Assessment Updated by [email or web address]: Wendy Colbert on 12/13/19 11:37 am * Is the patient Alert and Oriented? Yes * PCP RAY * Pharmacy [facility] * Preadmission Environment Home with Family * ADLs Independent * Other Equipment 02, [facility]BS WITH [facility] * Community resources currently utilized None * Additional services required to return to the preadmission environment? No * Can the patient safely return to the preadmission environment? Yes * Has this patient been hospitalized within the prior 30 days at any hospital? No Last DP export: 12/13/19 10:39 a Patient Name: LISETTE SANTIAGO Page [id number] at 1147 All edits/amendments must be made on the electronic document DICTATION DATE: 12/13/19 114 ACID TANK CLEANER: TREY 12/13/19 114 RPT#: [id number] DC DATE: STATUS: ADM IN [facility] [address] [place] [address] END OF REPORT
[2019-12-13 12:02] VITALS: BP 116/56
[2019-12-13] MEDS ORDERED: FLAGYL500 MG PO (12:55)
[2019-12-13] MEDS ORDERED: AMOXICILLIN500 M1 PO (13:08)
--- NOTE | 2019-12-13 13:35 | NUR ---
PT C/O PAIN 11/15, PROVIDED PAIN MEDS PER ORDER. PT STATES THAT SHE IS LEAVING TODAY AND THAT SHE MUST GO HOME TO TAKE CARE OF HER MOTHER, I VERBALIZED UNDERSTANDING AND EDUCATED PT ABOUT DISCHARGE. BED LOW, CL IN REACH.
[2019-12-13] MEDS ORDERED: LEVOFLOXACIN500 MG PO (14:27)
[2019-12-13] MEDS ORDERED: HYDROCODON-ACE1 EAC7 PO (14:27)
--- NOTE | 2019-12-13 14:45 | NUR ---
EDUCATED PT ON DISCHARGE INSTRUCTIONS, MEDICATIONS, ACTIVITY AND FOLLOW UP APT, PT VERBALIZED UNDERSTANDING AND SIGNED PAPERWORK. REMOVED PIV FROM RIGHT FOREARM, CATHETER INTACT, NO REDNESS OR SWELLING. ESCORTED PT TO FRONT ENTRANCE VIA WHEELCHAIR.
--- NOTE | 2019-12-13 17:51 | MORECARE ---
CASE MANAGEMENT DISCHARGE SUMMARY PATIENT: LISETTE SANTIAGO UNIT: [id number] ADM DATE: 12/09/19 AGE: 64 : 55 SEX: F ROOM/BED: D.2237 AUTHOR: DAVINDOC PHYSICIAN: REFERRING PHYSICIAN: ARNULFO SANTORO MD DATE OF SERVICE: 12/13/19 Discharge Plan Patient Name: LISETTE SANTIAGO Facility: [facility]:[place] : 1955 Planned Disposition: Home Anticipated Discharge Date: Discharge Date: 12/13/2019 Expected LOS: Initial Reviewer: [email or web address] Initial Review Date: 12/09/2019 Generated: 12/13/19 6:50 pm Comments DCP- Discharge Planning Updated by [email or web address]: Wendy Colbert on 12/13/19 10:[address] Patient Name: LISETTE SANTIAGO Admission Status: ER Accout number: [id number] Admission Date: 12-09-2019 : 1955 Admission Diagnosis:UNSPECIFIED ABDOMINAL PAIN Attending: ARNULFO SANTORO Current LOS: 4 Anticipated DC Date: Planned Disposition: Home Primary Insurance: [employer] CHOICE PPO MCR ADVANT Discharge Planning Comments: CM met with patient at bedside after explaining CM role and obtaining verbal consent. CM discussed availability / needs of home health, REHAB and medical equipment. PATIENT DENIES ANY DISCHARGE NEEDS. HAS 02 AND NEBS AT HOME. WANTS TO DC TO HOME TODAY. IMM SIGNED. STATES SHE DOES NOT WANT HOME HEALTH. SHE HAS A CAREGIVER THAT COMES AND HELPS HER WITH HER SON, SAID SHE HELPS HER ALSO IF NEEDED. CM TO FOLLOW AND ASSIST NEEDED. Mat Sewer: Wendy Colbert DCPIA - Discharge Planning Initial Assessment Updated by [email or web address]: Wendy Colbert on 12/13/19 11:37 am * Is the patient Alert and Oriented? Yes * PCP RAY * Pharmacy [facility] * Preadmission Environment Home with Family * ADLs Independent * Other Equipment 02, NEBS WITH [facility] * Community resources currently utilized None * Additional services required to return to the preadmission environment? No * Can the patient safely return to the preadmission environment? Yes * Has this patient been hospitalized within the prior 30 days at any hospital? No Last DP export: 10/7/20 10:47 a Patient Name: LISETTE SANTIAGO Page 32222 at 1751 All edits/amendments must be made on the electronic document DICTATION DATE: 12/13/191749 FRAME STYLIST: TREY 12/13/191749 RPT#: [id number] DC DATE:12/13/19 STATUS: DIS IN [facility] [address] [place] [address] END OF REPORT
== END 2019-12-13 15:18 | disposition home or self-care (01) | DRG 419 ==
LOC: D.ER 11:47 → D.MS 16:44
PROVIDERS: Family Medicine; Surgery; ADMIT Family Medicine; ATTEND Family Medicine
PROC: 0WQF0ZZ Repair Abdominal Wall, Open Approach (ICD-10-PCS; 2019-12-11)
PROC: 0FT44ZZ Resection of Gallbladder, Percutaneous Endoscopic Approach (ICD-10-PCS; principal; 2019-12-11 08:00)
DX: K81.0 Acute cholecystitis (principal); D75.1 Secondary polycythemia; J44.9 Chronic obstructive pulmonary disease, unspecified; I25.10 Atherosclerotic heart disease of native coronary artery without angina pectoris; I10 Essential (primary) hypertension; F12.90 Cannabis use, unspecified, uncomplicated; G89.29 Other chronic pain; M54.9 Dorsalgia, unspecified; Z95.0 Presence of cardiac pacemaker; Z86.73 Personal history of transient ischemic attack (TIA), and cerebral infarction without residual deficits; E66.01 Morbid (severe) obesity due to excess calories; Z68.33 Body mass index [BMI] 33.0-33.9, adult; K42.9 Umbilical hernia without obstruction or gangrene